=== PATIENT | female | born 1980 | race Hispanic/Latino ===

== ENCOUNTER 2020-12-16 14:13 | Emergency (ER) | payer SELFPAY ==
[~2020-12-16 14:13] MED LIST: Iopamidol-370 76% 500 ML 1 ML ONE
[2020-12-16 14:49] LABS: #Eosinphils 0.1 thou/uL (0.0-0.7); #Lymphocytes 1.9 thou/uL (1.20-3.40); #Monocytes 0.4 thou/uL (0.11-0.59); #Neutrophils 2.7 thou/uL (1.40-6.50); %Basophils 0.7 % (0.0-1.0); %Eosinophils 1.4 % (0.0-10.0); %Lymphocytes 36.5 % (21.0-51.0); %Monocytes 7.9 % (0.0-10.0); %Neutrophils 53.6 % (42.0-75.0); Hemoglobin 11.5 g/dL (12.0-16.0); Mean Corpuscular HGB CONC 32.6 g/dL (32.0-36.0); Mean Corpuscular Hemoglobin 25.3 pg (27.0-31.0); Mean Corpuscular Volume 77.6 fL (78.0-98.0); Mean Platelet Volume 8.9 fL (7.4-10.4); Platelet Count 242 thou/uL (130-400); RBC Distribution Width 14.9 % (11.5-14.5); Red Blood Cell (RBC) Count 4.55 mill/uL (4.20-5.40); White Blood Cell (WBC) Count 5.1 thou/uL (4.8-10.8)
[2020-12-16 15:12] LABS: ALT (SGPT) 13 U/L (8-55); AST (SGOT) 16 U/L (5-34); Albumin 4.3 g/dL (3.5-5.0); Alkaline Phosphatase 47 U/L (40-110); Anion Gap 15 mmol/L (10-20); BUN (Urea Nitrogen) 8 mg/dL (7.0-18.7); Bilirubin, Total 0.3 mg/dL (0.2-1.2); Calc. Creatinine Clearance 0 mL/min (70-130); Carbon Dioxide 25 mmol/L (22-29); Chloride 104 mmol/L (98-107); Globulin 2.9 g/dL (2.4-3.5); Glucose 94 mg/dL (70-105); Potassium 3.8 mmol/L (3.5-5.1); Protein, Total 7.2 g/dL (6.0-8.3); Sodium 140 mmol/L (136-145)
[2020-12-16] MEDS ORDERED: Ondansetron PF 4 MG/2 ML Vial ONE (16:01)
[2020-12-16] MEDS ORDERED: Morphine 4 MG/ML VIAL ONE ×2 (16:01)
[2020-12-16 16:27] LABS: Bacteria/HPF None Seen HPF (None Seen); Bilirubin Negative (Negative); Blood, Urine 3+ (Negative); Clarity Clear (Clear); Glucose, Urine (Dipstick) Normal (Negative); Ketone, Urine Negative (Negative); Leukocyte Negative Leu/uL (Negative); Nitrite Negative (Negative); Protein, Urine (Dipstick) 30 mg/dL (Neg-Trace); RBC/HPF Greater than 50 HPF (0-3); Specific Gravity, Urine 1.023 (1.002-1.036); Squamous Epithelial 0-3 HPF (0-3); Urobilinogen Normal mg/dL (Less than 2); pH, Urine 8.5 (5.0-9.0)
[2020-12-16 16:31] LABS: Pregnancy Test - Urine (BHCG) Negative (Negative); Pregu Control Background? CLEAR/WHITE (CLR/WHITE); Pregu Control Bar Appear? YES (CONTROL BAR); Specific Gravity 1.023 (1.002-1.036)
[2020-12-16] MEDS ORDERED: Acetaminophen 500 MG TAB ONE (18:00)
[2020-12-16] MEDS ORDERED: Ketorolac Tromethamine 30 MG/ML VIAL ONE (18:00)
== END 2020-12-16 18:35 | disposition home or self-care (01) ==
LOC: ERS 14:13
DX: G43.909 Migraine, unspecified, not intractable, without status migrainosus (principal); N92.6 Irregular menstruation, unspecified
CPT/HCPCS: 36415; 71045; 74177; 80053; 81003; 81015; 81025; 84484; 84702; 85025; 86850; 86900; 86901; 93005; 96374; 96375; J1885; J2270; J2405; Q9967

== ENCOUNTER 2024-12-11 19:32 | Emergency (ER) | payer SELFPAY ==
[2024-12-11 20:16] LABS: Hematocrit 37.3 % (36.0-47.0); Hemoglobin 12.3 g/dL (12.0-16.0); Mean Corpuscular Hemoglobin 27.5 pg (27.0-31.0); Mean Corpuscular Volume 83.3 fL (78.0-98.0); Platelet Count 84 10x3/uL (130-400); Red Blood Cell (RBC) Count 4.48 mill/uL (4.20-5.40); White Blood Cell (WBC) Count 5.22 10x3/uL (4.8-10.8)
[2024-12-11 20:28] LABS: Bacteria/HPF 1+ HPF (None Seen); CAUTI Indications for Culture Fever or rigors; Glucose, Urine (Dipstick) Normal (Negative); Leukocyte Negative Leu/uL (Negative); Protein, Urine (Dipstick) 200 mg/dL (Neg-Trace); RBC/HPF Greater than 50 HPF (0-3); Specific Gravity, Urine 1.033 (1.002-1.036)
[2024-12-11 20:29] LABS: Urine Culture Reflex No No
[2024-12-11 20:38] LABS: Giant Platelets 1.0 % (0-5); Plasma Cells 1 % (0-0); Platelet Adequacy Comment Platelets Decreased; RBC Morphology Within Normal Limits; Smudge Cells 6.7 %
[2024-12-11 20:41] LABS: ALT (SGPT) 123 U/L (Less than 34); AST (SGOT) 154 U/L (11-34); Albumin 3.5 g/dL (3.1-4.5); Alkaline Phosphatase 133 U/L (40-110); Anion Gap 14 mmol/L (10-20); BUN (Urea Nitrogen) 7 mg/dL (7.0-18.7); Bilirubin, Total 0.7 mg/dL (0.3-1.2); Calc. Creatinine Clearance 0 mL/min (70-130); Calcium 8.7 mg/dL (7.8-10.44); Carbon Dioxide 28 mmol/L (22-29); Chloride 95 mmol/L (98-107); Globulin 3.7 g/dL (2.4-3.5); Glucose 118 mg/dL (70-105); Potassium 4.6 mmol/L (3.5-5.1); Sodium 132 mmol/L (136-145)
[2024-12-11 21:36] LABS: MONO NEGATIVE CONTROL ZONE White (Negative) (White); MONO POSITIVE CONTROL Pink Line (Positive) (PINK/RED); Mononucleosis NEGATIVE (NEGATIVE)
[2024-12-11] MEDS ORDERED: Acetaminophen 500 MG TAB ONE (22:26)
[2024-12-11] MEDS ORDERED: Ibuprofen 200 MG TAB ONE (22:26)
== END 2024-12-11 22:30 | disposition home or self-care (01) ==
LOC: ERS 19:32
DX: B34.9 Viral infection, unspecified (principal); N39.0 Urinary tract infection, site not specified
CPT/HCPCS: 36415; 71045; 80053; 81001; 83605; 85025; 86308; 87081; 87428; 87430

== ENCOUNTER 2024-12-14 22:48 | Emergency (ER) | payer SELFPAY ==
[2024-12-15] MEDS ORDERED: Ketorolac Tromethamine 30 MG (1 mL) VIAL ONE (02:22)
[2024-12-15] MEDS ORDERED: Lidocaine 1% (PF) 30 ML VIAL ONE (02:23)
== END 2024-12-15 03:22 | disposition home or self-care (01) ==
LOC: ERS 22:48
DX: M79.675 Pain in left toe(s) (principal); L08.9 Local infection of the skin and subcutaneous tissue, unspecified
CPT/HCPCS: 64450; 90471; 90715; 96372; J1885; J2003; J2270